=== PATIENT | female | born 1990 | race Caucasian/White ===

== ENCOUNTER 2016-07-19 14:27 | Emergency (ER) | payer OTHER, BC ==
[~2016-07-19] VITALS: Ht 157.5 cm; Wt 70.4 kg
[2016-07-19 14:36] VITALS: TEMP 36.7; Ht 157.5 cm; Wt 70.4 kg
[2016-07-19] MEDS ORDERED: PRENTAB26 PO (15:06)
[2016-07-19] MEDS ORDERED: SODIUM CHLORIDE 0.9% 1000ML 1,000 ML IV STA (15:32)
[2016-07-19 16:12] LABS: HEMATOCRIT 35.7 % (37-47); MEAN CELL VOLUME 95.5 fL (80-100); MEAN CORPUSCULAR HEMOGLOBIN 31.3 pg (25-34); MEAN CORPUSCULAR HGB CONC 32.8 g/dl (32-36); MEAN PLATELET VOLUME 11.4 fL (7.4-10.4); PLATELET COUNT 188 K/uL (130-400); RED BLOOD COUNT 3.74 M/uL (4.2-5.4); WHITE BLOOD COUNT 11.63 K/uL (4.8-10.8)
[2016-07-19 16:30] LABS: URINE APPEARANCE CLEAR (CLEAR); URINE BILIRUBIN NEG (NEG); URINE COLOR YELLOW; URINE NITRITE NEG (NEG); URINE PH 5.5 (4.5-7.5); URINE SPECIFIC GRAVITY 1.022 (1.000-1.030); UROBILINOGEN NEG (NEG)
[2016-07-19 16:34] LABS: ALT/SGPT 27 U/L (12-78); BLOOD UREA NITROGEN 9 mg/dl (7-18); BUN/CREATININE RATIO 16.5 (10-20); CALCIUM 9.3 mg/dl (8.5-10.1); CARBON DIOXIDE 27 mmol/L (21-32); CHLORIDE 107 mmol/L (98-107); CREATININE 0.56 mg/dl (0.60-1.20); GLUCOSE 69 mg/dl (70-99); SODIUM 140 mmol/L (136-145)
[2016-07-19 16:37] LABS: ALKALINE PHOSPHATASE 75 U/L (45-117); AST/SGOT 16 U/L (15-37)
[2016-07-19 16:43] LABS: MANUAL MICROSCOPIC REQUIRED? NO; REVIEW REQ? NO
[2016-07-19 16:43] LABS: BASO % 0.1 %; BASO ABS # 0.01 K/uL (0-0.2); COMPLETE YES; EOS % 0.3 %; IG% 0.3 %; LYMPH % 17.3 %; LYMPH ABS # 2.01 K/uL (1.2-3.4); MONO % 6.2 %; NEUT % 75.8 %
--- NOTE | 2016-07-19 16:54 | DIAGNOSTIC IMAGING REPORT ---
Right upper quadrant ultrasound GALLBLADDER-ABD LIMITED CLINICAL HISTORY: ABDOMINAL PAIN/GI pain TECHNIQUE: Ultrasound COMPARISON STUDY: None FINDINGS: Normal gallbladder. Gallbladder wall and biliary ductal system are normal. Common bile duct measures 4 mm. Liver is uniform throughout. Pancreas and right kidney are unremarkable. IMPRESSION: Normal study Electronically signed by: Keny eNgrete M.D. 07/19/2016 4:52 PM Dictated Date/Time: 07/19/2016 4:51 PM
--- NOTE | 2016-07-19 16:55 | DIAGNOSTIC IMAGING REPORT ---
Limited ultrasound LIMITED (US) CLINICAL HISTORY: abdominal pain pain TECHNIQUE: Ultrasound COMPARISON STUDY: None FINDINGS: Single, viable intrauterine . Fetus is cephalic in presentation. Cardiac activity is normal. Placenta is posterior. Estimated gestational age 29 weeks. IMPRESSION: Single, viable intrauterine estimated at 29 weeks gestational age. Electronically signed by: Keny Negrete M.D. 07/19/2016 4:54 PM Dictated Date/Time: 07/19/2016 4:53 PM
[2016-07-19 17:04] VITALS: BP 129/70; O2SAT 100
[2016-07-19 17:16] VITALS: PULSE 72
--- NOTE | 2016-07-19 23:05 | EMERGENCY ROOM VISIT NOTE ---
ED Visit Note First contact with patient: 14:58 Chief Complaint: Abdominal pain. History of Present Illness: Ms. Carlos is a 25 year-old white female who ambulates into the ED accompanied by her complaining of bilateral upper quadrant abdominal pain. Historically patient reports she has no significant gastrointestinal disorders or abdominal surgeries. She is currently 1 para 0 with an EDC of October 05. She has had no complications with her thus far. Patient reports shortly after waking, approximately 6 hours ago, she developed severe abdominal pain in the bilateral upper abdominal quadrants; she reports this feels like her diaphragm is causing the pain. Since that time the pain has been constant but has waxed and waned in intensity. She did contact her OB/ ELECTROSTATIC PAINT OPERATOR service and spoke to Dr. Lowe and he recommended that she come to the emergency department for evaluation. Currently she describes her pain as a cramping sensation. She currently rates her discomfort 2/10 and reports that has decreased from 6/10. Her pain slightly worsens when she takes a deep breath. She has not identified any alleviating factors related to the pain. She has not taken any medications for pain prior to arrival at the hospital. She denies any associated symptoms including fevers, chills, sweats, skin eruptions, skin color changes, headache, dizziness, lightheadedness, upper respiratory tract symptoms, cough, wheezing, shortness of breath, chest pain, nausea, vomiting, diarrhea, constipation, urinary symptoms, hematuria, vaginal bleeding, vaginal discharge, back/flank pain. Review of Systems: As noted above in history of present illness. All body systems were reviewed and found to be negative as noted above. Past Medical History: Patient denies. Current Medications: wall movements. Allergies to Medications: Morphine, penicillin, sulfa. Social History: Patient is currently employed; she feels safe in her home environment; patient denies tobacco and alcohol use. Physical Examination: Vital Signs: Date Time Temp Pulse Resp B/P Pulse Ox O2 Delivery O2 Flow Rate FiO2 07/19/16 17:16 72 07/19/16 17:04 74 17 129/70 100 Room Air 07/19/16 14:36 36.7 86 20 117/74 98 Room Air GENERAL: 25-year-old female in mild distress due to pain, nontoxic-appearing, afebrile and hemodynamically stable. NEUROLOGICAL: Awake, alert and oriented to person, place and time. Answering questions appropriately and following commands. Normal gait. Good hand eye coordination. SKIN: Warm, dry and pink. No soft tissue eruptions or trauma noted. HEENT: Atraumatic and normocephalic. PERRL. Sclera white and conjunctiva pink. Oral cavity moist and pink. Pharynx is nonerythematous or edematous. Speech normal. No lymphadenopathy. Trachea midline. No jugular venous distention. BACK: No tenderness over the bony spine. No CVA tenderness. THORAX: Lungs sounds are clear to auscultation and equal bilaterally with symmetrical chest wall. No wheezing, rales or rhonchi. No crepitus, tenderness , subcutaneous air or deformities noted. HEART: Regular rate and rhythm. No gallops, rubs or murmurs are appreciated. ABDOMEN: , soft and nontender. Positive bowel sounds in all quadrants. No guarding, rigidity or organomegaly. EXTREMITIES: Moves all extremities well on command and with purpose. All distal neurovascular statuses are intact and equal bilaterally. ED Course: Patient is assessed as noted above. Laboratory Testing: Test 07/19/16 15:00 07/19/16 15:40 Range/Units Urine Color YELLOW Urine Appearance CLEAR CLEAR Urine pH 5.5 4.5-7.5 Urine Specific [place]yler 1.022 1.000-1.030 Urine Protein NEG NEG Urine Glucose (UA) NEG NEG Urine Ketones NEG NEG Urine Occult Blood NEG NEG Urine Nitrite NEG NEG Urine Bilirubin NEG NEG Urine Urobilinogen NEG NEG Urine Leukocyte Esterase NEG NEG White Blood Count 11.63 4.8-10.8 K/uL Red Blood Count 3.74 4.2-5.4 M/uL Hemoglobin 11.7 12.0-16.0 g/dL Hematocrit 35.7 37-47 % Mean Corpuscular Volume 95.5 80-100 fL Mean Corpuscular Hemoglobin 31.3 25-34 pg Mean Corpuscular Hemoglobin Concent 32.8 32-36 g/dl Platelet Count 188 130-400 K/uL Mean Platelet Volume 11.4 7.4-10.4 fL Neutrophils (%) (Auto) 75.8 % Lymphocytes (%) (Auto) 17.3 % Monocytes (%) (Auto) 6.2 % Eosinophils (%) (Auto) 0.3 % Basophils (%) (Auto) 0.1 % Neutrophils # (Auto) 8.82 1.4-6.5 K/uL Lymphocytes # (Auto) 2.01 1.2-3.4 K/uL Monocytes # (Auto) 0.72 0.11-0.59 K/uL Eosinophils # (Auto) 0.03 0-0.5 K/uL Basophils # (Auto) 0.01 0-0.2 K/uL RDW Standard Deviation 44.9 36.4-46.3 fL RDW Coefficient of Variation 13.0 11.5-14.5 % Immature Granulocyte % (Auto) 0.3 % Immature Granulocyte # (Auto) 0.04 0.00-0.02 K/uL Sodium Level 140 136-145 mmol/L Potassium Level 4.0 3.5-5.1 mmol/L Chloride Level 107 98-107 mmol/L Carbon Dioxide Level 27 21-32 mmol/L Anion Gap 6.0 3-11 mmol/L Blood Urea Nitrogen 9 7-18 mg/dl Creatinine 0.56 0.60-1.20 mg/dl Est Creatinine Clear Calc Drug Dose 141.2 ml/min Estimated GFR () > 150.0 Estimated GFR (Non- 129.6 BUN/Creatinine Ratio 16.5 10-20 Random Glucose 69 70-99 mg/dl Calcium Level 9.3 8.5-10.1 mg/dl Total Bilirubin 0.6 0.2-1 mg/dl Direct Bilirubin < 0.1 0-0.2 mg/dl Aspartate Amino Transf (AST/SGOT) 16 15-37 U/L Alanine Aminotransferase (ALT/SGPT) 27 12-78 U/L Alkaline Phosphatase 75 45-117 U/L Total Protein 6.7 6.4-8.2 gm/dl Albumin 3.2 3.4-5.0 gm/dl Lipase 134 73-393 U/L Gallbladder Ultrasound: Was reviewed by myself and read by the radiologist showing a normal-appearing gallbladder, liver, pancreas and right kidney. Common bile duct measuring 4 mm. Ultrasound: Was reviewed by myself and read by the radiologist and shows a single viable intrauterine at an estimated 28 weeks gestation with normal cardiac activity and a posterior placenta. Patient was hydrated with normal saline; she was offered but refused pain medications. Patient was reassessed multiple times during her stay in the emergency department. Patient's case was reviewed with Dr. Phoenix; we agreed on diagnostic approach, treatment, disposition and plan. Patient's case was reviewed with Dr. Lowe; he requested that I just encouraged the patient comes or neck appointment which is scheduled for tomorrow and to use acetaminophen as needed for pain. Patient was educated about today's findings and instructed on her treatment plan ; she verbalized understanding and agreement with this plan. Clinical Impression: Bilateral upper abdominal pain. Decision-Making: Initially and my differential diagnosis I considered pancreatitis, hepatitis, musculoskeletal disorder, cholecystitis, uterine contractions and other causes. Disposition: Patient discharged home in stable condition accompanied by her ; prior to departure she was reassessed and subjectively reported she was feeling the same and rated her discomfort 3/10. Plan: Patient was encouraged use 650 mg of acetaminophen every 6 hours as needed for pain. Patient was encouraged to keep her upcoming appointment tomorrow with her OB/ ELECTROSTATIC PAINT OPERATOR for follow-up care and treatment. Patient was encouraged return the ED for worsening/uncontrolled pain, fevers, vomiting, vaginal bleeding or any new/concerning symptoms.
== END 2016-07-19 17:29 | disposition home or self-care (01) ==
LOC: C.EDB 14:29 → C.EDA 17:29
DX: O26.893 Other specified pregnancy related conditions, third trimester (principal); R10.12 Left upper quadrant pain; R10.11 Right upper quadrant pain; Z3A.28 28 weeks gestation of pregnancy

== ENCOUNTER 2016-10-09 01:49 | Inpatient (IN) | payer OTHER, BC ==
[~2016-10-09] VITALS: Ht 160 cm; Wt 70.3 kg
[~2016-10-09 01:49] MED LIST: PRENTAB26 PO
[2016-10-09] MEDS ORDERED: LACTATED RINGER'S 1000ML 1,000 ML IV PRN (02:02)
[2016-10-09 02:18] VITALS: Ht 160 cm; Wt 70.3 kg
[2016-10-09] MEDS ORDERED: FENTANYL 2MCG/ML ROPIV 1.25MG/ML 100ML BAG EPI ONE (02:34)
[2016-10-09] MEDS ORDERED: BUPIVACAINE 0.25% 30 ML VIAL ONE (02:34)
[2016-10-09] MEDS ORDERED: EpHEDrine SULFATE INJ 50 MG/ML AMP ONE (02:34)
[2016-10-09] MEDS ORDERED: FENTANYL CITRATE INJ 50 MCG/1 ML 2 ML VIAL ONE (02:34)
[2016-10-09 02:37] LABS: HEMATOCRIT 37.6 % (37-47); MEAN CELL VOLUME 93.5 fL (80-100); MEAN CORPUSCULAR HEMOGLOBIN 32.1 pg (25-34); MEAN CORPUSCULAR HGB CONC 34.3 g/dl (32-36); MEAN PLATELET VOLUME 11.9 fL (7.4-10.4); PLATELET COUNT 153 K/uL (130-400); RED BLOOD COUNT 4.02 M/uL (4.2-5.4); WHITE BLOOD COUNT 17.61 K/uL (4.8-10.8)
[2016-10-09] MEDS: LACTATED RINGER'S 1000ML 1,000 ML IV SCH ×2 (03:03→08:17)
[2016-10-09] MEDS ORDERED: NALOXONE HCL INJ 1 MG in SODIUM CHLORIDE 0.9% 1000ML 1,000 ML IV PRN (04:19)
[2016-10-09] MEDS ORDERED: LACTATED RINGER'S 1000ML 500 ML IV PRN (04:19)
[2016-10-09] MEDS ORDERED: NALOXONE HCL INJ 0.4 MG/1 ML VIAL/CARP IV PRN (04:30)
[2016-10-09] MEDS ORDERED: PROMETHAZINE HCL INJ 6.25 MG in SODIUM CHLORIDE 0.9% 50ML 50 ML IV PRN (04:30)
[2016-10-09] MEDS ORDERED: NALBUPHINE HCL INJ 10 MG/ML AMP IV PRN (04:30)
[2016-10-09] MEDS ORDERED: ONDANSETRON INJ 2 MG/ML 2 ML VIAL IV PRN (04:30)
[2016-10-09] MEDS ORDERED: EpHEDrine SULFATE INJ 50 MG/ML AMP IV PRN (04:30)
[2016-10-09] MEDS ORDERED: FENTANYL 2MCG/ML ROPIV 1.25MG/ML 100ML BAG EPI PRN (04:30)
[2016-10-09] MEDS ORDERED: DiphenhydrAMINE HCL 50 MG/ML VIAL IV PRN (04:30)
[2016-10-09] MEDS ORDERED: OXYTOCIN 30 UNITS/500ML NSS IV ONE (07:03)
--- NOTE | 2016-10-09 07:44 | HISTORY & PHYSICAL EXAMINATION ---
DATE OF ADMISSION: 10/09/2016 HISTORY OF PRESENT ILLNESS: The patient is a 25-year-old , due date 10/05/2016, being at 40 weeks and 4 days, presented to labor and delivery with contractions. On arrival, she had no shortness of breath, no chills, no fever. She had intensive contractions 2-3 minutes. She was examined and found to be 5 cm, 80% and -1 station. heart rate is category 1. There is no bloody show or rupture of membranes. COURSE: Has been unremarkable. LABORATORY DATA: Blood type O positive, antibody negative, rubella immune, GBS negative. PAST MEDICAL HISTORY: None. PAST SURGICAL HISTORY: The patient had arthroscopic ACL repair in 2006. ALLERGIES: THE PATIENT IS ALLERGIC TO MORPHINE, PENICILLIN AND SULFA ANTIBIOTICS. SOCIAL HISTORY: The patient denies smoking, drug or alcohol use. PHYSICAL EXAMINATION: GENERAL: Well-developed, well-nourished white female in labor discomfort. HEART: S1, S2, regular rhythm and rate. LUNGS: Clear to auscultation bilaterally. ABDOMEN: Gravid. PELVIC EXAMINATION: 5 cm, 80% and -1 station. EXTREMITIES: No cyanosis, clubbing or edema. ASSESSMENT AND PLAN: A 28-year-old 1, para 0 at 40 weeks and 4 days in labor. PLAN: Admit. Plan is to anticipate vaginal delivery.
[2016-10-09] MEDS ORDERED: ACETAMINOPHEN 325 MG TAB PO PRN (10:15)
[2016-10-09] MEDS ORDERED: HYDROCORTISONE ACETATE 25 MG SUPP PR PRN (10:15)
[2016-10-09] MEDS ORDERED: DIPHTHERIA/TETANUS/PERTUSSIS 0.5 ML SYR/VIAL IM. ONE (10:15)
[2016-10-09] MEDS ORDERED: BENZOCAINE 20% AER SPR 82.5 GM CAN EXT PRN (10:15)
[2016-10-09] MEDS ORDERED: SUPERCREAM 0.870 % 15GM JAR EXT PRN (10:15)
[2016-10-09] MEDS ORDERED: LANOLIN OINT EXT PRN ×2 (10:15)
[2016-10-09] MEDS ORDERED: OXYTOCIN 30 UNITS/500ML NSS IV PRN (10:15)
--- NOTE | 2016-10-09 11:18 | Anesthesia Procedure Note ---
Anesthesia Epidural Removal Nt Date & Time Oct 09, 2016 at 11:17 Vital Signs Pain Intensity: 0.0 Notes Mental Status: alert / awake / arousable, participated in evaluation Nausea / Vomiting: adequately controlled Pain: adequately controlled Airway Patency, RR, SpO2: stable & adequate BP & HR: stable & adequate Hydration State: stable & adequate Neuraxial Anesthesia: was administered Anesthetic Complications: no major complications apparent, pt satisfied with anesthetic care Epidural: removed without complications, with tip intact
[2016-10-09 13:05] VITALS: BP 150/83; PULSE 90; TEMP 36.9; O2SAT 98
--- NOTE | 2016-10-09 13:05 | DELIVERY SUMMARY ---
DATE OF OPERATION: 10/09/2016 TIME OF DELIVERY: 9:37 a.m. DELIVERY OF PLACENTA: 9:39 a.m. DELIVERY NOTE: The patient is a 25-year-old 1, para 0 at 40 weeks and 4 days gestation, who was admitted to labor and delivery on the morning of 10/09/2016 in active labor. She received an epidural for anesthesia. She reached complete dilation at 8:20 a.m. Artificial rupture of membranes was performed at 8:33 a.m. with clear amniotic fluid noted. She pushed to delivery at 9:37 a.m. She delivered a viable male infant in the right occiput anterior position to an intact perineum. The baby was delivered and placed on the patient's abdomen. Cord was clamped x2 and cut. Apgars were 9 at 1 minute, 9 at 5 minutes. Please see nursing notes for further baby assessment. Cord blood was then obtained and intact placenta with 3-vessel cord was delivered at 9:39 a.m. Oxytocin infusion was then began. The lower uterine segment and vagina was cleared of any blood clots and debris. Exploration of the perineum noted a right labial laceration which was repaired with 4-0 Vicryl suture in continuous running fashion. Excellent hemostasis was noted. No other lacerations were seen. Estimated blood loss is 300 mL. All sponge, instrument and needle counts were found to be correct x2. The patient tolerated the delivery well and went into recovery with stable vital signs. I attest to the content of the Intraoperative Record and any orders documented therein. Any exception s are noted below.
[2016-10-09 15:45] VITALS: BP 130/78; PULSE 77; TEMP 36.7
[2016-10-09] MEDS: IBUPROFEN 600 MG TAB PO PRN (16:39)
[2016-10-09 19:20] VITALS: BP 114/72; PULSE 83; TEMP 36.7; O2SAT 97
[2016-10-09] MEDS: DOCUSATE SODIUM 100 MG CAP PO SCH (19:30)
[2016-10-09 23:20] VITALS: BP 102/53; PULSE 78; TEMP 36.9
[2016-10-10 03:45] VITALS: BP 122/77; PULSE 69; TEMP 36.8
[2016-10-10 06:54] LABS: HEMATOCRIT 30.6 % (37-47)
[2016-10-10 07:25] VITALS: BP 103/67; PULSE 72; TEMP 36.8; O2SAT 97
[2016-10-10] MEDS: IBUPROFEN 600 MG TAB PO PRN ×4 (08:25→23:29)
[2016-10-10] MEDS: DOCUSATE SODIUM 100 MG CAP PO SCH ×2 (08:26→19:40)
[2016-10-10] MEDS: FERROUS SULFATE 325 MG TAB PO SCH (08:26)
[2016-10-10] MEDS: PRENATAL VITAMIN TAB PO SCH (08:26)
--- NOTE | 2016-10-10 08:52 | OB/GYN Progress Note ---
[employer] Progress Note Date of Service Oct 10, 2016. Subjective conversation w/ patient, physical exam Ambulation: ambulating normally Voiding: no voiding problems Passing Gas: Yes Diet Tolerance: Regular Diet Lochia: Small Feeding Type: Breast Feeding Objective Vital Signs Date Time Temp Pulse Resp B/P (MAP) Pulse Ox O2 Delivery O2 Flow Rate FiO2 10/10/16 07:25 36.8 72 16 103/67 (79) 97 Room Air 10/10/16 03:45 36.8 69 16 122/77 (92) Room Air 10/09/16 23:23 Room Air 10/09/16 23:20 36.9 78 16 102/53 (69) Room Air 10/09/16 19:20 36.7 83 18 114/72 (86) 97 Room Air 10/09/16 15:45 36.7 77 20 130/78 (95) Room Air 10/09/16 15:45 Room Air 10/09/16 13:05 36.9 90 16 150/83 (105) 98 Room Air Physical Exam General Appearance: WELL-APPEARING, NO APPARENT DISTRESS Abdomen: non tender, soft Fundus: Firm Extremities: non-tender, normal inspection, no pedal edema Laboratory Results Last 24 Hours Test 10/10/16 06:23 Hemoglobin 10.4 g/dL Hematocrit 30.6 % Assessment and Plan Post- Day Number: 1 Continue Routine Care: tent d/c in AM
[2016-10-10 15:30] VITALS: BP 114/74; PULSE 78; TEMP 36.9; O2SAT 98
[2016-10-10] MEDS ORDERED: BISACODYL 5 MG TABEC PO SCH (20:00)
[2016-10-10 23:30] VITALS: BP 119/75; PULSE 63; TEMP 36.7; O2SAT 98
[2016-10-11] MEDS ORDERED: BISACODYL 10 MG SUPP PR PRN (07:00)
[2016-10-11 08:05] VITALS: BP 130/81; PULSE 63; TEMP 36.4
[2016-10-11] MEDS: DOCUSATE SODIUM 100 MG CAP PO SCH (08:28)
[2016-10-11] MEDS: FERROUS SULFATE 325 MG TAB PO SCH (08:28)
[2016-10-11] MEDS: PRENATAL VITAMIN TAB PO SCH (08:28)
[2016-10-11] MEDS: IBUPROFEN 600 MG TAB PO PRN (08:28)
[2016-10-11 08:32] LABS: HEMATOCRIT 35.4 % (37-47); MEAN CORPUSCULAR HEMOGLOBIN 31.5 pg (25-34); MEAN CORPUSCULAR HGB CONC 32.5 g/dl (32-36); MEAN PLATELET VOLUME 11.7 fL (7.4-10.4); PLATELET COUNT 145 K/uL (130-400); RED BLOOD COUNT 3.65 M/uL (4.2-5.4); WHITE BLOOD COUNT 13.81 K/uL (4.8-10.8)
--- NOTE | 2016-10-11 09:59 | OB/GYN Progress Note ---
CORPORATE TRAVEL CONSULTANT Progress Note Date of Service Oct 11, 2016. Subjective conversation w/ patient, physical exam Ambulation: ambulating normally Voiding: no voiding problems Passing Gas: Yes Diet Tolerance: Regular Diet Lochia: Moderate Feeding Type: Breast Feeding Pain: 2/10 Notes: Doing well. Tolerating regular diet. Ambulating without difficulty. Lochia decreasing. Would like to go home today. Objective Vital Signs Date Time Temp Pulse Resp B/P (MAP) Pulse Ox O2 Delivery O2 Flow Rate FiO2 10/11/16 08:05 Room Air 10/11/16 08:05 36.4 63 16 130/81 (97) Room Air 10/10/16 23:30 36.7 63 18 119/75 (90) 98 Room Air 10/10/16 23:30 98 Room Air 10/10/16 16:15 Room Air 10/10/16 15:30 36.9 78 16 114/74 (87) 98 Room Air Physical Exam General Appearance: WELL-APPEARING Respiratory/Chest: chest non-tender, lungs clear Cardiovascular: regular rate, rhythm Abdomen: normal bowel sounds, soft Fundus: Firm Extremities: normal range of motion, non-tender, no calf tenderness Laboratory Results Last 24 Hours Test 10/11/16 08:12 White Blood Count 13.81 K/uL Red Blood Count 3.65 M/uL Hemoglobin 11.5 g/dL Hematocrit 35.4 % Mean Corpuscular Volume 97.0 fL Mean Corpuscular Hemoglobin 31.5 pg Mean Corpuscular Hemoglobin Concent 32.5 g/dl RDW Standard Deviation 47.3 fL RDW Coefficient of Variation 13.3 % Platelet Count 145 K/uL Mean Platelet Volume 11.7 fL Assessment and Plan Post- Day Number: 2 Continue Routine Care: -D/C home today -F/U in 6 weeks.
--- NOTE | 2016-10-11 10:00 | Discharge Instructions ---
Discharge Instructions Date of Service Oct 11, 2016. Admission Reason for Admission: Discharge Discharge Diagnosis / Problem: Vaginal Delivery Discharge Goals Goal(s): Routine recovery after delivery Medications Continue Dispensed Medications: supercream, dermaplast, tucks, lansinoh Activity Recommendations Activity Limitations: per Instructions/Follow-up section . Instructions / Follow-Up Instructions / Follow-Up ACTIVITY RECOMMENDATIONS: * Gradual return to full activity over the next 2-3 weeks. * No lifting - nothing heavier than baby over the next 2-3 weeks. * Do not engage in vigorous exercise, sexual activity or sports until cleared by your physician. * Do not drive or operate any motorized equipment until cleared by your physician. * You may shower/bathe daily. BREAST CARE: If you are not breast feeding: * Wear a supportive bra 24 hours a day for one to two weeks. * Avoid stimulating your breasts and nipples as much as possible during the first few weeks after delivery. * When taking a shower, have the warm water hit your back, not breasts. * When your breasts feel full, apply ice packs. Usually three to four times a day helps ease the discomfort. * Take a mild pain medication (Tylenol/Motrin) when you are uncomfortable. If breast feeding: * Use breast milk to lubricate nipples. Lansinoh cream may be used for sore nipples. You do not need to remove cream prior to breast feeding. If using a different brand of cream, check the label for directions regarding removal of cream prior to nursing. * Wear a supportive bra. * If having problems with breasts or breast feeding, call a technology applications consultant or your health care provider. EPISIOTOMY CARE: After delivery, if you have an episiotomy (stitches), the following steps will ease discomfort and aid healing. * For the first 24 hours after delivery, place ice packs next to your episiotomy to help reduce swelling. * After the first 24 hour-period, sitz baths, either portable or in the tub, are suggested. A shower with a shower arm sprayed over the episiotomy may be comforting. * Michell care should be done after each voiding and bowel movement. Squirt warm water from a plastic bottle over the perineum (region of the body between the anus and urinary opening) and pat dry. * Use Dermoplast to ease discomfort. Shake container. [place] directly over the episiotomy. * Place a Tucks on a clean sanitary pad next to your episiotomy. OVER THE COUNTER MEDICATION: * For discomfort or pain, you may use Acetaminophen (Tylenol), Ibuprofen (Advil ), or Naproxen (Aleve) following the package directions. * For constipation you may use Colace following the package directions. SPECIAL CARE INSTRUCTIONS: When you are discharged from the hospital, it is important for you to follow the instructions listed below: * During the first week at home, you should be able to care for yourself and your baby. In addition, the usual light household activities are encouraged. * Limit your activities to the way you feel. Do not try to clean the house or move furniture. Be sensible. * If you actively engage in sports and have done so up until the time of your delivery, you may resume these activities as soon as you feel able. This may take up to one month or even longer. Use good judgment. * Continue to take your vitamins for at least six weeks after the of your baby. * Your diet need not be limited unless you were on a special diet before your delivery. Breast-feeding mothers need around 2500 calories per day and at least 64-80 ounces of fluid per day (8 to 10 glasses). * You should eat foods from the four major food groups. Crash diets or fad diets are to be avoided. Eating lean meats, fresh fruits and vegetables, low-fat dairy products, high fiber foods and a regular exercise program, will help you get back to your pre- weight without putting your health at risk. * Constipation is sometimes a problem after delivery. Take a mild laxative as needed. If breast feeding, Milk of Magnesia is acceptable to use. You may use a suppository or Fleets enema if no episiotomy. * A daily shower or tub bath is suggested. Be sure to thoroughly and gently dry the perineum. * A bloody vaginal discharge will usually continue until around four weeks post . A small amount of bleeding may continue for as long as six weeks. Vaginal discharge changes from the bright red bleeding after delivery to pink then brownish and finally yellowish-pink before becoming white and disappearing. * Bleeding may increase with activity. Your first period may come in 4-8 weeks. If you are breast feeding, your period may be delayed even longer. * [place] (sex) can begin whenever both you and your partner feel comfortable and do not have any form of genital infection. It is recommended that you wait until after your return appointment and discuss with your physician. If you have questions, please talk to your health care practitioner. A condom should be used to prevent infection and . * Foreplay, gentle intercourse and lubrication is very important the first several times to prevent pain. A water-based lubricant such as K-Y jelly or Astroglide may be used. * Tampons may be used six weeks after delivery. * Douching should be avoided for 6 weeks after delivery. * If you have RH negative blood and your baby is RH positive, you will receive RHOGAM by injection prior to discharge. The nurse will give you a card to keep with you that has the date and place that you received RHOGAM after delivery. * During your care, you had a Rubella screen done to check for the presence of rubella antibodies in your blood. If your test was negative, you will receive a Rubella vaccine prior to discharge. This vaccine may cause a fever, soreness at the injection site and flu-like symptoms. If these symptoms persist, notify your health care practitioner. is not advised for three months after a Rubella vaccine. There is a higher chance of having a baby with defects if conceived within three months of getting the vaccine. * If you were discharged 24 hours from delivery or before 48 hours: Visiting nurses will come to your home 48 hours after discharge to assess you and your baby. The visiting nurse will meet with you while you are in the hospital to arrange a time and get directions to your home. * Verbalizes understanding of car seat law as reviewed with patient nursing. * Car Seat hand-out given and reviewed with patient by nursing. * Shaken baby information reviewed with patient by nursing. Call you doctor if: * Heavy bleeding (saturating several pads an hour) or passing clots the size of your fist. * A fever >101 degrees F (38.3 degrees C) on two occasions four hours apart and/or chills. * Unusual pain in the pelvic or vaginal areas. * "Baby Blues" lasting longer than two weeks. If you have any questions or concerns, call your health care practitioner at . FOLLOW-UP VISIT: * Please call the office at to schedule a 6 week examination. It is important you keep this appointment. * It is important for you to make arrangements for either yearly or twice yearly check-ups thereafter. Current Hospital Diet Patient's current hospital diet: Regular OB Diet Discharge Diet Recommended Diet: Regular OB Diet Pending Studies Studies pending at discharge: no Medical Emergencies . Who to Call and When: Medical Emergencies: If at any time you feel your situation is an emergency, please call 911 immediately. . Non-Emergent Contact Non-Emergency issues call your: Primary Care Provider, [facility] Field Coordinator . . "Provider Documentation" section prepared by Vargas Will. . VTE Core Measure Inpt VTE Proph given/why not?: Treatment not indicated
[2016-10-11 10:20] VITALS: BP_DIAS 81; PULSE 63; TEMP 36.4
== END 2016-10-11 10:40 | disposition home or self-care (01) | DRG 775 ==
LOC: C.OPB 01:49 → C.LD 01:49 → C.OPB 02:03 → C.LD 02:03 → C.OBG 13:43
PROVIDERS: ADMIT Obstetrics & Gynecology; ATTEND Obstetrics & Gynecology
PROC: 10907ZC Drainage of Amniotic Fluid, Therapeutic from Products of Conception, Via Natural or Artificial Opening (ICD-10-PCS; principal; 2016-10-09)
PROC: 10E0XZZ Delivery of Products of Conception, External Approach (ICD-10-PCS; principal; 2016-10-09)
PROC: 4A1HXFZ Monitoring of Products of Conception, Cardiac Rhythm, External Approach (ICD-10-PCS; principal; 2016-10-09)
DX: O80 Encounter for full-term uncomplicated delivery (principal); Z88.5 Allergy status to narcotic agent; Z88.0 Allergy status to penicillin; Z88.2 Allergy status to sulfonamides; Z80.8 Family history of malignant neoplasm of other organs or systems; Z80.3 Family history of malignant neoplasm of breast; Z37.0 Single live birth; Z3A.40 40 weeks gestation of pregnancy

== ENCOUNTER → 2016-11-23 | Outpatient (CLI) | payer OTHER, BC ==
[2016-11-23 13:00] LABS: ALT/SGPT 35 U/L (12-78); AST/SGOT 21 U/L (15-37); BLOOD UREA NITROGEN 15 mg/dl (7-18); BUN/CREATININE RATIO 18.3 (10-20); CALCIUM 8.7 mg/dl (8.5-10.1); CARBON DIOXIDE 29 mmol/L (21-32); CHLORIDE 107 mmol/L (98-107); CHOLESTEROL 187 mg/dl (0-200); CREATININE 0.81 mg/dl (0.60-1.20); GLUCOSE 79 mg/dl (70-99); POTASSIUM 4.1 mmol/L (3.5-5.1); SODIUM 140 mmol/L (136-145); TRIGLYCERIDES 47 mg/dl (0-150); VERY LOW DENSITY LIPOPROT CALC 9 mg/dl
[2016-11-23 13:03] LABS: ALB/GLOB RATIO 1.2 (0.9-2); ALKALINE PHOSPHATASE 89 U/L (45-117); CHOLESTEROL/HDL RATIO 2.1; HDL CHOLESTEROL 89 mg/dl; LDL CHOLESTEROL CALCULATED 89 mg/dl
== END | disposition home or self-care (01) ==
LOC: C.LABBFT 10:39
PROVIDERS: ATTEND Internal Medicine
DX: Z00.00 Encounter for general adult medical examination without abnormal findings (principal)

== ENCOUNTER 2018-04-17 21:37 | Inpatient (IN) ==
[2018-04-17] MEDS ORDERED: OXYTOCIN 30 UNITS/500 ML BAG IV PRN ×2 (21:58→23:00)
[2018-04-17] MEDS ORDERED: LACTATED RINGER'S 1,000 ML IV PRN ×2 (21:58→22:42)
[2018-04-17] MEDS ORDERED: BUPIVACAINE 0.25% 30 ML VIAL ONE (22:02)
[2018-04-17] MEDS ORDERED: ePHEDrine sulfate 50 MG/ML AMP ONE (22:03)
[2018-04-17] MEDS ORDERED: fentaNYL citrate 100 MCG/2 ML VIAL ONE (22:03)
[2018-04-17] MEDS ORDERED: fentaNYL 2MCG/ML ROPIV 1.25MG/ML 100 ML BAG EPI ONE (22:03)
--- NOTE | 2018-04-17 22:03 | History & Physical Report ---
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, has been on Valtrex since 36 weeks No symptoms nor lesions Allergies Allergy/AdvReac Type Severity Reaction Status Date / Time morphine Allergy Intermediate Hives Verified 10/10/16 08:24 Penicillins Allergy Intermediate Hives Verified 10/10/16 08:24 Sulfa (Sulfonamide Allergy Intermediate Hives Verified 10/10/16 08:24 Antibiotics) cat dander Allergy Unknown Unknown Verified 10/10/16 08:24 Home Medications Home Medications Medication Instructions Recorded Confirmed Type Multivit/Min/Iron/Fol Ac/Pren 1 tab PO DAILY #0 tab 07/19/16 History ( Vitamin) Patient History OB History FT 18 months ago Review of Systems All systems reviewed & are unremarkable except as noted in HPI & below Physical Exam 2 Constitutional: WD/WN, vitals as above well nourished and + acute distress Genitourinary: Manual OB Exam: + cervical dilation 7 cm, + cervical effacement 80% and + station -2 OB Exam Monitor Tracing: + category I Bulging bag
--- NOTE | 2018-04-17 22:41 | Anesthesiology Consultation ---
Date of Service April 17, 2018 @ 39.5 Uncomplicated Assessment & Plan (1) Encounter for pre-operative examination: Chart Review Chart Review: Patient NOT seen in Pre Admission Testing and Acceptable Risk for Labor Epidural Consults Requested none ASA ASA2 Proposed Anesthesia Anesthesia Type: CSE Risk / Benefits Reviewed With: PT / POA / Parent / Guardian, Accepts Plan and Informed Consent Obtained NPO Date Last Intake of Fluids: 04/17/18 Time Last Intake of Fluids: 19:00 Date Last Intake of Solids: 04/16/18 Time Last Intake of Solids: 19:00 History Height/Weight Height: 5 ft 3 in Weight: 72.575 kg Allergies Allergy/AdvReac Type Severity Reaction Status Date / Time morphine Allergy Intermediate Hives Verified 10/10/16 08:24 Penicillins Allergy Intermediate Hives Verified 10/10/16 08:24 Sulfa (Sulfonamide Allergy Intermediate Hives Verified 10/10/16 08:24 Antibiotics) cat dander Allergy Unknown Unknown Verified 10/10/16 08:24 Medications Home Medications Medication Instructions Recorded Confirmed Last Taken Multivit/Min/Iron/Fol Ac/Pren 1 tab PO DAILY #0 tab 07/19/16 Unknown ( Vitamin) vit-iron fum-folic ac 1 tab PO DAILY 04/17/18 04/17/18 04/15/18 [ Vitamin] valacyclovir 500 mg PO 04/17/18 04/15/18 Active Medications Generic Name Dose Route Start Last Admin Trade Name Freq PRN Reason Stop Dose Admin Lactated Ringer's 1,000 mls @ 999 mls/hr 04/17/18 21:58 04/17/18 22:00 Lr IV 05/17/18 21:57 999 mls/hr .Q1H1M PRN Administration (Pre-Anesthesia) Social History Smoking Status: Never smoker Do You Dip or Chew Tobacco: No Hx Alcohol Use: No Hx Substance Use: No Physical Exam Vital Signs Last Vital Signs Temp 36.7 C 04/17/18 21:57 Pulse 78 04/17/18 22:37 Resp 18 04/17/18 21:57 BP 135/74 04/17/18 22:36 Pulse Ox 99 04/17/18 22:37 Constitutional Gravid abdomen ENMT Mouth: no TMJ abnormality Thyromental Distance: > or= 3.5 Finger Breadths Mallampati Class: II Neck normal visual inspection Respiratory normal respiratory effort Cardiovascular Rate/Rhythm: regular rate and regular rhythm Neurologic moves all extremities Psychiatric Orientation: alert
[2018-04-17] MEDS ORDERED: NALOXONE HCL 1 MG in SODIUM CHLORIDE 0.9% 1000ML 1,000 ML IV PRN (22:42)
[2018-04-17] MEDS ORDERED: DiphenhydrAMINE HCL 50 MG/ML VIAL IV PRN (22:42)
[2018-04-17] MEDS ORDERED: NALOXONE HCL 0.4 MG/1 ML VIAL/CARP IV PRN (22:42)
[2018-04-17] MEDS ORDERED: NALBUPHINE HCL INJ 10 MG/ML AMP IV PRN (22:42)
[2018-04-17] MEDS ORDERED: ePHEDrine sulfate 50 MG/ML AMP IV PRN (22:42)
[2018-04-17] MEDS ORDERED: ONDANSETRON INJ 2 MG/ML 2 ML VIAL IV PRN (22:42)
[2018-04-17] MEDS ORDERED: PROMETHAZINE HCL 6.25 MG in SODIUM CHLORIDE 0.9% 50 ML IV PRN (22:42)
[2018-04-17] MEDS ORDERED: fentaNYL 2MCG/ML ROPIV 1.25MG/ML 100 ML BAG EPI PRN (22:42)
[2018-04-17] MEDS ORDERED: SUPERCREAM 0.870% 15 GM JAR EXT PRN (23:00)
[2018-04-17] MEDS ORDERED: BISACODYL 10 MG SUPP PR PRN (23:00)
[2018-04-17] MEDS ORDERED: HYDROCORTISONE ACETATE 25 MG SUPP PR PRN (23:00)
[2018-04-17] MEDS ORDERED: ACETAMINOPHEN 325 MG TAB PO PRN (23:00)
[2018-04-17] MEDS ORDERED: BENZOCAINE 20% AER SPR 82.5 GM CAN EXT PRN (23:00)
[2018-04-17] MEDS ORDERED: DIPHTHERIA/TETANUS/PERTUSSIS 0.5 ML SYR/VIAL IM ONE (23:00)
--- NOTE | 2018-04-17 23:02 | Anesthesia Procedure Note ---
Date of Service April 17, 2018 Anesthesia Post Epidural Note Vital Signs Vital Signs: Temp Pulse Resp BP Pulse Ox 04/17/18 22:51 81 134/80 04/17/18 22:47 107 H 100 04/17/18 22:45 18 04/17/18 22:43 110 H 179/86 H 04/17/18 22:42 102 H 100 04/17/18 22:40 18 04/17/18 22:39 83 137/74 04/17/18 22:37 78 99 04/17/18 22:36 76 135/74 04/17/18 22:35 18 04/17/18 22:33 73 132/70 04/17/18 22:32 78 98 04/17/18 22:30 18 04/17/18 22:27 75 176/89 H 98 04/17/18 22:22 81 97 04/17/18 22:21 88 172/86 H 04/17/18 22:19 90 159/112 H 04/17/18 22:18 78 89 L 04/17/18 22:17 83 97 04/17/18 22:15 85 181/105 H 04/17/18 21:57 36.7 C 18 Notes Mental Status: alert / awake / arousable Nausea / Vomiting: adequately controlled Pain: adequately controlled Airway Patency, RR, SpO2: stable & adequate BP & HR: stable & adequate Hydration State: stable & adequate Neuraxial Anesthesia: was administered and sensory block is resolving Anesthetic Complications: no major complications apparent Epidural: Removed without complications and With tip intact
[2018-04-17 23:03] LABS: Hemoglobin 13.3 g/dL (12.0-16.0); Mean Corpuscular Hgb Conc 34.1 g/dL (32-36); Mean Platelet Volume 13.1 fL (7.4-10.4); Platelet Count 138 K/uL (130-400); RDW Coefficient of Variation 12.9 % (11.5-14.5); RDW Standard Deviation 44.6 fL (36.4-46.3); Red Blood Count 4.02 M/uL (4.2-5.4); White Blood Count 14.03 K/uL (4.8-10.8)
[2018-04-17] MEDS ORDERED: HydrALAZINE HCL 20 MG/ML VIAL IV STA (23:35)
[2018-04-17] MEDS ORDERED: MEPERIDINE HCL 25 MG/ML CARP IV ONE (23:42)
[2018-04-17] MEDS ORDERED: HydrALAZINE HCL 20 MG/ML VIAL ONE (23:44)
[2018-04-17] MEDS ORDERED: MAGNESIUM SULFATE 40GM / WTR 1,000 ML BAG IV ONE (23:45)
[2018-04-17] MEDS ORDERED: MAGNESIUM SULFATE 4GM / WTR 100 ML BAG IV ONE (23:45)
[2018-04-17] MEDS ORDERED: MEPERIDINE HCL 25 MG/ML CARP ONE (23:45)
[2018-04-17] MEDS ORDERED: MAGNESIUM SULFATE / WTR 40 GM/1,000 ML BAG IV SCH (23:45)
--- NOTE | 2018-04-18 00:07 | Obstetrical Progress Note ---
Date of Service April 18, 2018 Subjective Patient is reevaluated Her BP's were elevated when she presented to L&D, but she was very painful After epidural was placed she had normal readings. She started to have severe epigastric pain after delivery with elevated BP's in severe range She states she had it with ctxs but not sure from labor pain or not. Epigastric pain got worse after delivery of baby +N&V No RUQ pain/ CALLAWAY/ Change in vision/ Numbness or tingling/ CP/SOB PE: Patient was vomiting earlier and in distress Vital Signs Temp Pulse Resp BP Pulse Ox 04/18/18 00:02 70 100 04/17/18 23:59 69 172/97 H 04/17/18 23:57 75 100 04/17/18 23:53 65 192/103 H 04/17/18 23:52 69 99 04/17/18 23:47 77 99 04/17/18 23:43 71 195/112 H 04/17/18 23:42 75 99 04/17/18 23:31 78 100 04/17/18 23:29 77 182/86 H 04/17/18 23:23 77 169/100 H 04/17/18 23:20 76 173/94 H 04/17/18 23:09 73 168/92 H 04/17/18 22:51 81 134/80 04/17/18 22:47 107 H 100 04/17/18 22:45 18 04/17/18 22:43 110 H 179/86 H 04/17/18 22:42 102 H 100 04/17/18 22:40 18 04/17/18 22:39 83 137/74 04/17/18 22:37 78 99 04/17/18 22:36 76 135/74 04/17/18 22:35 18 04/17/18 22:33 73 132/70 04/17/18 22:32 78 98 04/17/18 22:30 18 04/17/18 22:27 75 176/89 H 98 04/17/18 22:22 81 97 04/17/18 22:21 88 172/86 H 04/17/18 22:19 90 159/112 H 04/17/18 22:18 78 89 L 04/17/18 22:17 83 97 04/17/18 22:15 85 181/105 H 04/17/18 21:57 36.7 C 18 CVS: S1S2 RRR Lungs: CTAB Abd: soft, epigastric tenderness ( 7/10 in intensity), no RUQ tenderness Fundus firm, bleeding minimal Ext: NT, no edema, DTR 3+/3+, no clonus Labs pending AP: 27 yo s/p with elevated Bp's, in severe range, sudden onset epigastric pain, presenting as preeclampsia Plan Hydralazine IV for BP, Demerol for pain, Magnesium seizure prophylaxis Continue to monitor closely Physical Exam 2 Vital Signs (Past 24 Hours): Last Vital Signs Temp 36.7 C 04/17/18 21:57 Pulse 69 04/17/18 23:59 Resp 18 04/17/18 22:45 BP 172/97 H 04/17/18 23:59 Pulse Ox 100 04/17/18 23:57
[2018-04-18 00:09] LABS: BUN Creatinine Ratio 11.9 (10-20); Calcium 10.2 mg/dl (8.5-10.1); Creatinine Clr Calc Pharmacy 103.4 ml/min; Est GFR (African American) 120.8; Est GFR (Non-African American) 104.2; Potassium 3.9 mmol/L (3.5-5.1)
[2018-04-18 00:12] LABS: Albumin Globulin Ratio 0.8 (0.9-2); Bilirubin,Total 0.4 mg/dl (0.2-1); Globulin 3.9 gm/dl (2.5-4.0); Total Protein 6.9 gm/dl (6.4-8.2)
[2018-04-18 00:14] LABS: INR 0.9 (0.9-1.1); Partial Thromboplastin Ratio 0.9; Partial Thromboplastin Time 24.3 Seconds (21.0-31.0); Prothrombin Time 9.4 Seconds (9.0-12.0)
[2018-04-18] MEDS ORDERED: OXYCODONE/ACETAMINOPHEN 5mg/325mg TAB PO PRN (00:35)
[2018-04-18] MEDS: LACTATED RINGER'S 1,000 ML IV SCH ×5 (00:37→14:24)
[2018-04-18] MEDS ORDERED: ONDANSETRON INJ 2 MG/ML 2 ML VIAL IV PRN (00:39)
--- NOTE | 2018-04-18 00:39 | Obstetrical Progress Note ---
Date of Service April 18, 2018 Subjective Patient feels better Epigastric pain is 3/10 ( was 7) No more N&V, tolerating clears and crackers PBP's came down but still eelvated Labs are back 04/17/18 04/17/18 04/17/18 Range/Units 23:53 23:41 23:41 WBC (4.8-10.8) K/uL RBC (4.2-5.4) M/uL Hgb (12.0-16.0) g/dL Hct (37-47) % MCV (80-100) fL MCH (25-34) pg MCHC (32-36) g/dL RDW Std Deviation (36.4-46.3) fL RDW Coeff of Carlitos (11.5-14.5) % Plt Count (130-400) K/uL MPV (7.4-10.4) fL PT 9.4 (9.0-12.0) Seconds INR 0.9 (0.9-1.1) APTT 24.3 (21.0-31.0) Seconds PTT Ratio 0.9 Sodium 138 (136-145) mmol/L Potassium 3.9 (3.5-5.1) mmol/L Chloride 106 (98-107) mmol/L Carbon Dioxide 26 (21-32) mmol/L Anion Gap 6.0 (3-11) BUN 9 (7-18) mg/dl Creatinine 0.78 (0.6-1.2) mg/dl Est Cr Clr Drug Dosing 103.4 ml/min Est GFR ( Amer) 120.8 Est GFR (Non-Af Amer) 104.2 BUN/Creatinine Ratio 11.9 (10-20) Glucose 102 H (70-99) mg/dl Calcium 10.2 H (8.5-10.1) mg/dl Total Bilirubin 0.4 (0.2-1) mg/dl AST 56 H (15-37) U/L ALT 55 (12-78) U/L Alkaline Phosphatase 114 (45-117) U/L Lactate Dehydrogenase 265 H (84-246) U/L Total Protein 6.9 (6.4-8.2) gm/dl Albumin 3.0 L (3.4-5.0) gm/dl Globulin 3.9 (2.5-4.0) gm/dl Albumin/Globulin Ratio 0.8 L (0.9-2) Amylase 69 (25-115) U/L Lipase 103 (73-393) U/L 04/17/18 Range/Units 22:18 WBC 14.03 H (4.8-10.8) K/uL RBC 4.02 L (4.2-5.4) M/uL Hgb 13.3 (12.0-16.0) g/dL Hct 39.0 (37-47) % MCV 97.0 (80-100) fL MCH 33.1 (25-34) pg MCHC 34.1 (32-36) g/dL RDW Std Deviation 44.6 (36.4-46.3) fL RDW Coeff of Carlitos 12.9 (11.5-14.5) % Plt Count 138 (130-400) K/uL MPV 13.1 H (7.4-10.4) fL PT (9.0-12.0) Seconds INR (0.9-1.1) APTT (21.0-31.0) Seconds PTT Ratio Sodium (136-145) mmol/L Potassium (3.5-5.1) mmol/L Chloride (98-107) mmol/L Carbon Dioxide (21-32) mmol/L Anion Gap (3-11) BUN (7-18) mg/dl Creatinine (0.6-1.2) mg/dl Est Cr Clr Drug Dosing ml/min Est GFR ( Amer) Est GFR (Non-Af Amer) BUN/Creatinine Ratio (10-20) Glucose (70-99) mg/dl Calcium (8.5-10.1) mg/dl Total Bilirubin (0.2-1) mg/dl AST (15-37) U/L ALT (12-78) U/L Alkaline Phosphatase (45-117) U/L Lactate Dehydrogenase (84-246) U/L Total Protein (6.4-8.2) gm/dl Albumin (3.4-5.0) gm/dl Globulin (2.5-4.0) gm/dl Albumin/Globulin Ratio (0.9-2) Amylase (25-115) U/L Lipase (73-393) U/L AST slightly elevated Plan to repeat labs in am Continue with IV Magnesium Labetalol for BP Percoset 1 tb for pain for now, will hold Acetaminophen if LFT's will increase in am Physical Exam 2 Vital Signs (Past 24 Hours): Last Vital Signs Temp 36.8 C 04/18/18 00:00 Pulse 78 04/18/18 00:32 Resp 18 04/18/18 00:00 BP 167/97 H 04/18/18 00:28 Pulse Ox 99 04/18/18 00:32
[2018-04-18] MEDS ORDERED: HydrALAZINE HCL 20 MG/ML VIAL IV ONE (00:45)
[2018-04-18] MEDS ORDERED: OXYCODONE/ACETAMINOPHEN 5mg/325mg TAB ONE (01:07)
[2018-04-18] MEDS: LABETALOL HCL 100 MG TAB PO SCH ×3 (01:18→21:31)
[2018-04-18] MEDS ORDERED: MEPERIDINE HCL 50 MG/ML CARP IM PRN (01:46)
[2018-04-18] MEDS ORDERED: CALCIUM CARBONATE 500 MG CHEWABLE TAB PO PRN (02:18)
[2018-04-18] MEDS ORDERED: HydrALAZINE HCL 20 MG/ML VIAL IV PRN ×2 (02:25→02:52)
--- NOTE | 2018-04-18 04:36 | Delivery Summary ---
DATE OF OPERATION: 04/17/2018 TIME OF DELIVERY OF BABY: 2346 p.m. TIME OF DELIVERY OF PLACENTA: 2355 p.m. DETAILS OF DELIVERY: The patient was found to be fully dilated and desired to push. She pushed only once and delivered the head without difficulty. There was a nuchal cord around the neck which was reduced easily. Shoulders were delivered with minimal traction. Baby was handed to the mother where mouth and nose were suctioned. Cord was clamped x2 and cut. It was a 3-vessel cord. Cord blood was obtained. The vagina and perineum were checked for lacerations. There was a small first-degree labial laceration on the superior aspect of the patient's labial fusion. It was repaired with 3-0 Vicryl on a SH needle. Excellent hemostasis was achieved. Rest of the vagina and perineum were intact and then placenta was found to be in the vagina, delivered spontaneous as intact and complete. Uterus was explored, found to be empty. Lower segment was cleared of all clots and debris. The fundus was firm. EBL was 100 mL. Mom and baby tolerated the procedure well. Sponge, lap, needle count was correct x2. There was a viable male infant, Apgars 8 and 9. No complications happened and I was present during whole procedure. I attest to the content of the Intraoperative Record and any orders documented therein. Any exceptions are noted below. MTDD
[2018-04-18 04:58] LABS: Hematocrit (blood only) 33.8 % (37-47); Hemoglobin 11.4 g/dL (12.0-16.0); Mean Corpuscular Hgb Conc 33.7 g/dL (32-36); Mean Corpuscular Volume 95.5 fL (80-100); Mean Platelet Volume 12.7 fL (7.4-10.4); Platelet Count 104 K/uL (130-400); RDW Coefficient of Variation 12.9 % (11.5-14.5); RDW Standard Deviation 44.6 fL (36.4-46.3); Red Blood Count 3.54 M/uL (4.2-5.4); White Blood Count 21.46 K/uL (4.8-10.8)
[2018-04-18 04:59] LABS: Basophils # (auto) 0.01 K/uL (0-0.2); Eosinophils # (auto) 0.01 K/uL (0-0.5); Immature Granulocytes # (auto) 0.07 K/uL (0.00-0.02); Immature Granulocytes % (auto) 0.3 %; Lymphocytes # (auto) 1.53 K/uL (1.2-3.4); Lymphocytes % (auto) 7.1 %; Monocytes # (auto) 1.13 K/uL (0.11-0.59); Monocytes % (auto) 5.3 %; Neutrophils # (auto) 18.71 K/uL (1.4-6.5); Neutrophils % (auto) 87.3 %
[2018-04-18 05:00] LABS: Albumin Level 2.6 gm/dl (3.4-5.0); BUN Creatinine Ratio 11.6 (10-20); Calcium 8.5 mg/dl (8.5-10.1); Creatinine Clr Calc Pharmacy 102.1 ml/min; Est GFR (African American) 118.9; Est GFR (Non-African American) 102.6; Magnesium 4.5 mg/dl (1.8-2.4); Potassium 3.9 mmol/L (3.5-5.1)
[2018-04-18 05:04] LABS: Albumin Globulin Ratio 0.7 (0.9-2); Bilirubin,Total 0.9 mg/dl (0.2-1); Globulin 3.5 gm/dl (2.5-4.0); Total Protein 6.1 gm/dl (6.4-8.2)
--- NOTE | 2018-04-18 05:26 | Obstetrical Progress Note ---
Date of Service April 18, 2018 Subjective Patient is reevaluated She was evaluated by Hospitalist who as not recommended anything different. He plans to order CT is pain will come back. She feels much better, denies epigastric pain or RUQ pain No CALLAWAY/Change in vision/ CP/SOB Bleeding is minimal Vital Signs Temp Pulse Resp BP Pulse Ox 04/18/18 05:17 89 97 04/18/18 05:12 90 98 04/18/18 05:10 78 114/65 04/18/18 05:07 86 97 04/18/18 05:02 81 96 04/18/18 04:57 84 96 04/18/18 04:52 83 96 04/18/18 04:47 80 96 04/18/18 04:42 81 96 04/18/18 04:37 80 96 04/18/18 04:32 82 96 04/18/18 04:27 81 97 04/18/18 04:23 83 93 04/18/18 04:22 82 94 04/18/18 04:17 87 97 04/18/18 04:16 36.6 C 18 97 04/18/18 04:15 88 122/73 04/18/18 04:14 85 89 L 04/18/18 04:12 85 97 04/18/18 04:07 89 97 04/18/18 04:02 80 96 04/18/18 03:57 79 96 04/18/18 03:52 82 95 04/18/18 03:47 90 96 04/18/18 03:42 86 96 04/18/18 03:37 91 H 95 04/18/18 03:32 93 H 96 04/18/18 03:27 86 96 04/18/18 03:22 85 96 04/18/18 03:17 94 H 95 04/18/18 03:12 94 H 97 04/18/18 03:07 98 H 98 04/18/18 03:02 101 H 98 04/18/18 02:57 94 H 97 04/18/18 02:52 91 H 98 04/18/18 02:47 90 97 04/18/18 02:43 80 131/77 04/18/18 02:42 90 98 04/18/18 02:37 86 97 04/18/18 02:32 86 98 04/18/18 02:27 84 96 04/18/18 02:23 83 144/78 H 04/18/18 02:22 83 97 04/18/18 02:17 76 99 04/18/18 02:12 80 99 04/18/18 02:08 81 156/88 H 04/18/18 02:07 80 98 04/18/18 02:02 79 100 04/18/18 01:57 73 99 04/18/18 01:53 69 150/86 H 04/18/18 01:52 84 97 04/18/18 01:47 77 98 04/18/18 01:42 74 98 04/18/18 01:38 78 149/87 H 04/18/18 01:37 80 99 04/18/18 01:32 72 96 04/18/18 01:30 77 94 04/18/18 01:27 88 98 04/18/18 01:24 73 174/96 H 04/18/18 01:23 71 170/100 H 04/18/18 01:22 79 98 04/18/18 01:17 87 99 04/18/18 01:12 82 100 04/18/18 01:08 77 161/98 H 04/18/18 01:07 77 100 04/18/18 01:05 18 97 04/18/18 01:02 77 98 04/18/18 00:57 79 99 04/18/18 00:53 70 160/91 H 04/18/18 00:52 72 98 04/18/18 00:47 74 98 04/18/18 00:46 71 152/87 H 04/18/18 00:42 79 94 04/18/18 00:38 73 179/94 H 04/18/18 00:37 79 99 04/18/18 00:32 78 99 04/18/18 00:28 80 167/97 H 04/18/18 00:27 76 100 04/18/18 00:23 66 168/92 H 04/18/18 00:22 76 99 04/18/18 00:17 79 99 04/18/18 00:12 81 100 04/18/18 00:08 83 168/98 H 04/18/18 00:07 77 100 04/18/18 00:02 70 100 04/18/18 00:00 36.8 C 18 100 04/17/18 23:59 69 172/97 H 04/17/18 23:57 75 100 04/17/18 23:53 65 192/103 H 04/17/18 23:52 69 99 04/17/18 23:47 77 99 04/17/18 23:43 71 195/112 H 04/17/18 23:42 75 99 04/17/18 23:31 78 100 04/17/18 23:29 77 182/86 H 04/17/18 23:23 77 169/100 H 04/17/18 23:20 76 173/94 H 04/17/18 23:09 73 168/92 H 04/17/18 22:51 81 134/80 04/17/18 22:47 107 H 100 04/17/18 22:45 18 04/17/18 22:43 110 H 179/86 H 04/17/18 22:42 102 H 100 04/17/18 22:40 18 04/17/18 22:39 83 137/74 04/17/18 22:37 78 99 04/17/18 22:36 76 135/74 04/17/18 22:35 18 04/17/18 22:33 73 132/70 04/17/18 22:32 78 98 04/17/18 22:30 18 04/17/18 22:27 75 176/89 H 98 04/17/18 22:22 81 97 04/17/18 22:21 88 172/86 H 04/17/18 22:19 90 159/112 H 04/17/18 22:18 78 89 L 04/17/18 22:17 83 97 04/17/18 22:15 85 181/105 H 04/17/18 21:57 36.7 C 18 04/18/18 04/18/18 04/18/18 Range/Units 04:06 04:06 04:06 WBC 21.46 H (4.8-10.8) K/uL RBC 3.54 L (4.2-5.4) M/uL Hgb 11.4 L (12.0-16.0) g/dL Hct 33.8 L (37-47) % MCV 95.5 (80-100) fL MCH 32.2 (25-34) pg MCHC 33.7 (32-36) g/dL RDW Std Deviation 44.6 (36.4-46.3) fL RDW Coeff of Carlitos 12.9 (11.5-14.5) % Plt Count 104 L (130-400) K/uL MPV 12.7 H (7.4-10.4) fL Immature Gran % (Auto) 0.3 % Neut % (Auto) 87.3 % Lymph % (Auto) 7.1 % [place] % (Auto) 5.3 % Eos % (Auto) 0.0 % Baso % (Auto) 0.0 % Immature Gran # (Auto) 0.07 H (0.00-0.02) K/uL Neut # (Auto) 18.71 H (1.4-6.5) K/uL Lymph # (Auto) 1.53 (1.2-3.4) K/uL [place] # (Auto) 1.13 H (0.11-0.59) K/uL Eos # (Auto) 0.01 (0-0.5) K/uL Baso # (Auto) 0.01 (0-0.2) K/uL Platelet Estimate Normal (Normal) PT (9.0-12.0) Seconds INR (0.9-1.1) APTT (21.0-31.0) Seconds PTT Ratio Sodium 135 L (136-145) mmol/L Potassium 3.9 (3.5-5.1) mmol/L Chloride 104 (98-107) mmol/L Carbon Dioxide 23 (21-32) mmol/L Anion Gap 8.0 (3-11) BUN 9 (7-18) mg/dl Creatinine 0.79 (0.6-1.2) mg/dl Est Cr Clr Drug Dosing 102.1 ml/min Est GFR ( Amer) 118.9 Est GFR (Non-Af Amer) 102.6 BUN/Creatinine Ratio 11.6 (10-20) Glucose 108 H (70-99) mg/dl Calcium 8.5 D (8.5-10.1) mg/dl Magnesium 4.5 H (1.8-2.4) mg/dl Total Bilirubin 0.9 D (0.2-1) mg/dl AST 161 H (15-37) U/L ALT 136 H (12-78) U/L Alkaline Phosphatase 98 (45-117) U/L Lactate Dehydrogenase Pending (84-246) U/L Total Protein 6.1 L (6.4-8.2) gm/dl Albumin 2.6 L (3.4-5.0) gm/dl Globulin 3.5 (2.5-4.0) gm/dl Albumin/Globulin Ratio 0.7 L (0.9-2) Amylase (25-115) U/L Lipase (73-393) U/L 04/17/18 04/17/18 04/17/18 Range/Units 23:53 23:41 23:41 WBC (4.8-10.8) K/uL RBC (4.2-5.4) M/uL Hgb (12.0-16.0) g/dL Hct (37-47) % MCV (80-100) fL MCH (25-34) pg MCHC (32-36) g/dL RDW Std Deviation (36.4-46.3) fL RDW Coeff of Carlitos (11.5-14.5) % Plt Count (130-400) K/uL MPV (7.4-10.4) fL Immature Gran % (Auto) % Neut % (Auto) % Lymph % (Auto) % [place] % (Auto) % Eos % (Auto) % Baso % (Auto) % Immature Gran # (Auto) (0.00-0.02) K/uL Neut # (Auto) (1.4-6.5) K/uL Lymph # (Auto) (1.2-3.4) K/uL [place] # (Auto) (0.11-0.59) K/uL Eos # (Auto) (0-0.5) K/uL Baso # (Auto) (0-0.2) K/uL Platelet Estimate (Normal) PT 9.4 (9.0-12.0) Seconds INR 0.9 (0.9-1.1) APTT 24.3 (21.0-31.0) Seconds PTT Ratio 0.9 Sodium 138 (136-145) mmol/L Potassium 3.9 (3.5-5.1) mmol/L Chloride 106 (98-107) mmol/L Carbon Dioxide 26 (21-32) mmol/L Anion Gap 6.0 (3-11) BUN 9 (7-18) mg/dl Creatinine 0.78 (0.6-1.2) mg/dl Est Cr Clr Drug Dosing 103.4 ml/min Est GFR ( Amer) 120.8 Est GFR (Non-Af Amer) 104.2 BUN/Creatinine Ratio 11.9 (10-20) Glucose 102 H (70-99) mg/dl Calcium 10.2 H (8.5-10.1) mg/dl Magnesium (1.8-2.4) mg/dl Total Bilirubin 0.4 (0.2-1) mg/dl AST 56 H (15-37) U/L ALT 55 (12-78) U/L Alkaline Phosphatase 114 (45-117) U/L Lactate Dehydrogenase 265 H (84-246) U/L Total Protein 6.9 (6.4-8.2) gm/dl Albumin 3.0 L (3.4-5.0) gm/dl Globulin 3.9 (2.5-4.0) gm/dl Albumin/Globulin Ratio 0.8 L (0.9-2) Amylase 69 (25-115) U/L Lipase 103 (73-393) U/L 04/17/18 Range/Units 22:18 WBC 14.03 H (4.8-10.8) K/uL RBC 4.02 L (4.2-5.4) M/uL Hgb 13.3 (12.0-16.0) g/dL Hct 39.0 (37-47) % MCV 97.0 (80-100) fL MCH 33.1 (25-34) pg MCHC 34.1 (32-36) g/dL RDW Std Deviation 44.6 (36.4-46.3) fL RDW Coeff of Carlitos 12.9 (11.5-14.5) % Plt Count 138 (130-400) K/uL MPV 13.1 H (7.4-10.4) fL Immature Gran % (Auto) % Neut % (Auto) % Lymph % (Auto) % [place] % (Auto) % Eos % (Auto) % Baso % (Auto) % Immature Gran # (Auto) (0.00-0.02) K/uL Neut # (Auto) (1.4-6.5) K/uL Lymph # (Auto) (1.2-3.4) K/uL [place] # (Auto) (0.11-0.59) K/uL Eos # (Auto) (0-0.5) K/uL Baso # (Auto) (0-0.2) K/uL Platelet Estimate (Normal) PT (9.0-12.0) Seconds INR (0.9-1.1) APTT (21.0-31.0) Seconds PTT Ratio Sodium (136-145) mmol/L Potassium (3.5-5.1) mmol/L Chloride (98-107) mmol/L Carbon Dioxide (21-32) mmol/L Anion Gap (3-11) BUN (7-18) mg/dl Creatinine (0.6-1.2) mg/dl Est Cr Clr Drug Dosing ml/min Est GFR ( Amer) Est GFR (Non-Af Amer) BUN/Creatinine Ratio (10-20) Glucose (70-99) mg/dl Calcium (8.5-10.1) mg/dl Magnesium (1.8-2.4) mg/dl Total Bilirubin (0.2-1) mg/dl AST (15-37) U/L ALT (12-78) U/L Alkaline Phosphatase (45-117) U/L Lactate Dehydrogenase (84-246) U/L Total Protein (6.4-8.2) gm/dl Albumin (3.4-5.0) gm/dl Globulin (2.5-4.0) gm/dl Albumin/Globulin Ratio (0.9-2) Amylase (25-115) U/L Lipase (73-393) U/L BP's came down LFT' s increased PE: She is alert orientedx3, NAD, comfortable Abd: soft, NT, ND, no epigastric nor RUQ tenderness, no rebound either Fundus firm below U Lochia minimal Ext: NT, no edema, DTR2+/2+, no clonus AP: 27 yo s/p 6 hours ago, developed HELLP syndrome rigth after delivery On Labetalol, IV magnesium LFT's increased withing 4 hours with platelets dropped, 104 K Clinically stable, BP's under control Plan to monitor closely, Upper abdominal US Repeat labs in 6 hours Stop Tylenol and Percoset All questions were answered Physical Exam 2 Vital Signs (Past 24 Hours): Last Vital Signs Temp 36.6 C 04/18/18 04:16 Pulse 89 04/18/18 05:17 Resp 18 04/18/18 04:16 BP 114/65 04/18/18 05:10 Pulse Ox 97 04/18/18 05:17
--- NOTE | 2018-04-18 06:45 | Ultrasound Report ---
ABDOMINAL ULTRASOUND, RIGHT UPPER QUADRANT HISTORY: Epigastric pain and HELLP Syndrome. COMPARISON: Right upper quadrant ultrasound July 19, 2016. FINDINGS: Liver morphology is normal. No perihepatic fluid is noted. No hepatic hematoma is identifie d by sonography. 8 mm echogenic left hepatic lobe lesion favors a hemangioma. There is no biliary drew olivia dilatation. Moderate gallbladder wall thickening is noted. There are no gallstones. There is trac e sludge within the gallbladder. Sonographic Martin sign could not be assessed for given pain medicat ion administration. The pancreas is within normal limits by sonography. There is no right hydronephro sis. IMPRESSION: 1. Moderate gallbladder wall thickening, a nonspecific finding. Trace sludge within the gallbladder w ith no gallstones identified. 2. 8 mm echogenic left hepatic lobe lesion. Although nonspecific, a hemangioma is favored. Electronically signed by: Zurdo Mccloud M.D. 04/18/2018 6:44 AM
[2018-04-18 07:36] LABS: INR 0.9 (0.9-1.1); Partial Thromboplastin Ratio 0.9; Partial Thromboplastin Time 23.3 Seconds (21.0-31.0); Prothrombin Time 9.3 Seconds (9.0-12.0)
--- NOTE | 2018-04-18 07:42 | Consultation Report ---
DATE OF CONSULTATION: 04/18/2018 CHIEF COMPLAINT: Epigastric abdominal pain. HISTORY OF PRESENT ILLNESS: This is a 27-year-old female with past medical history significant for HSV infection, multigravida had normal vaginal delivery today and . On the way to the hospital , she had severe epigastric pain. She had normal vaginal delivery and she was found to be in hypertension. She received labetalol and hydralazine for blood pressure and received Demerol for the epigastric pain. Still the patient has significant epigastric abdominal pain and there is a question of HELLP syndrome and also an acute abdomen, so we are called for consult. When saw the patient, the patient's pain has almost resolved. She says it is only 1/10 in severity in the epigastric region and she is worried the pain will be more when she moves, but even on movement, the pain was okay, . She was nauseous during delivery, but currently the nauseous resolved. No feeling of hotness or cold. No chest pain or shortness of breath. No cough. Systolic blood pressure is currently in the 140s, resting comfortably, afebrile. Denies any other complaints. ALLERGIES: MORPHINE, PENICILLIN, SULFA ANTIBIOTICS AND CAT DANDER. PAST MEDICAL HISTORY: As mentioned above. PAST SURGICAL HISTORY: Right ACL repair. MEDICATIONS: The patient is on multivitamin, Benadryl, acyclovir 500 mg p.o. daily. FAMILY HISTORY: Significant for brother who had a bone cancer. Aunt has breast cancer. SOCIAL HISTORY: . No smoking history. No alcohol history. No drug use. REVIEW OF SYMPTOMS: As per HPI. Rest of review of systems is negative. PHYSICAL EXAMINATION: GENERAL: The patient is of moderate build, not in acute distress. VITAL SIGNS: Temperature 36.8, pulse 90, respiratory rate 18, blood pressure 131/77, oxygen 97% room air. HEENT: No pallor, no icterus. NECK: No JVD, no neck masses. CARDIOVASCULAR: S1, S2 heard, regular rate and rhythm, no gallop. RESPIRATORY SYSTEM: Normal AP diameter. No accessory muscle use. No wheezing. No crackles. ABDOMEN: Soft, bowel sounds present. Mild epigastric tenderness, no guarding, no rigidity. No distention. CENTRAL NERVOUS SYSTEM: Nonfocal. EXTREMITIES: No edema, no erythema. LABORATORIES: WBC 14, hemoglobin 13.3, hematocrit 39, platelets 138. PTT 9.4, INR 0.9, APTT 24.3. Sodium 138, potassium 3.9, chloride 106, bicarbonate 26, BUN 9, creatinine 0.7, serum glucose 102, calcium 10.2, mag, total bilirubin 0.4, AST 56, ALT 55, alkaline phosphatase is 140, total protein 6.9. Amylase 69, lipase 103. ASSESSMENT AND PLAN: This is a 27-year-old female status post normal vaginal delivery with complaints of epigastric pain and hypertension. 1. Normal delivery, multigravida patient. Management as per STRATEGY ANALYST. Questionable HELLP syndrome as the patient complained of severe epigastric pain and also blood pressure had been high, on labetalol, also received hydralazine. We will place on IV hydralazine p.r.n. Her labs look fine and abdominal pain is improving. possible gastritis.. We will follow the repeat labs in a.m. and closely monitor for any HELLP syndrome. 2. Deep venous thrombosis prophylaxis and disposition as per STRATEGY ANALYST. MTDD
--- NOTE | 2018-04-18 08:44 | Obstetrical Progress Note ---
Date of Service April 18, 2018 Assessment & Plan (1) HELLP syndrome (HELLP), third trimester: Present on Admission?: No Subjective feeling much better no nausea or vomitting tolerating diet mild headache noted but may be due to being tired/hungry no RUQ anymore no abdominal pain no bleeding Physical Exam 2 Vital Signs (Past 24 Hours): Last Vital Signs Temp 36.7 C 04/18/18 07:30 Pulse 92 H 04/18/18 08:37 Resp 18 04/18/18 07:30 BP 94/50 L 04/18/18 08:28 Pulse Ox 97 04/18/18 08:37 Constitutional: WD/WN, vitals as above comfortable Gastrointestinal (Abdomen): normal bowel sounds, soft, nontender, no hepatosplenomegaly fundus firm no edema of legs neg Julia's urine output adequate Skin: no rashes, warm and dry Results & Data Laboratory Results Vital Signs Temp Pulse Resp BP Pulse Ox 04/18/18 08:37 92 H 97 04/18/18 08:32 90 98 04/18/18 08:28 85 94/50 L 04/18/18 08:27 74 96 04/18/18 08:22 76 96 04/18/18 08:17 75 97 04/18/18 08:12 78 95 04/18/18 08:07 77 94 04/18/18 08:02 76 94 04/18/18 07:57 71 95 04/18/18 07:52 79 97 04/18/18 07:47 76 96 04/18/18 07:42 74 95 04/18/18 07:37 70 95 04/18/18 07:32 72 95 04/18/18 07:30 36.7 C 18 04/18/18 07:27 78 94 04/18/18 07:22 73 98 04/18/18 07:19 78 92 04/18/18 07:18 86 130/64 04/18/18 07:17 85 97 04/18/18 07:12 83 97 04/18/18 07:07 87 98 04/18/18 07:02 76 98 04/18/18 06:57 78 99 04/18/18 06:52 80 98 04/18/18 06:47 77 97 04/18/18 06:45 83 94 02/07/19 06:42 89 98 04/18/18 06:37 79 96 04/18/18 06:32 84 97 04/18/18 06:27 84 97 04/18/18 06:22 79 97 04/18/18 06:17 78 96 04/18/18 06:12 80 108/56 L 98 04/18/18 06:07 74 96 04/18/18 06:02 73 97 04/18/18 05:57 90 98 04/18/18 05:55 79 94 04/18/18 05:52 74 97 04/18/18 05:47 81 97 04/18/18 05:42 83 97 04/18/18 05:37 82 97 04/18/18 05:32 82 97 04/18/18 05:27 80 96 04/18/18 05:22 85 97 04/18/18 05:17 89 97 04/18/18 05:12 90 98 04/18/18 05:10 78 114/65 04/18/18 05:07 86 97 04/18/18 05:02 81 96 04/18/18 04:57 84 96 04/18/18 04:52 83 96 04/18/18 04:47 80 96 04/18/18 04:42 81 96 04/18/18 04:37 80 96 04/18/18 04:32 82 96 04/18/18 04:27 81 97 04/18/18 04:23 83 93 04/18/18 04:22 82 94 04/18/18 04:17 87 97 04/18/18 04:16 36.6 C 18 97 04/18/18 04:15 88 122/73 04/18/18 04:14 85 89 L 04/18/18 04:12 85 97 04/18/18 04:07 89 97 04/18/18 04:02 80 96 04/18/18 03:57 79 96 04/18/18 03:52 82 95 04/18/18 03:47 90 96 04/18/18 03:42 86 96 04/18/18 03:37 91 H 95 04/18/18 03:32 93 H 96 04/18/18 03:27 86 96 04/18/18 03:22 85 96 04/18/18 03:17 94 H 95 04/18/18 03:12 94 H 97 04/18/18 03:07 98 H 98 04/18/18 03:02 101 H 98 04/18/18 02:57 94 H 97 04/18/18 02:52 91 H 98 04/18/18 02:47 90 97 04/18/18 02:43 80 131/77 04/18/18 02:42 90 98 04/18/18 02:37 86 97 04/18/18 02:32 86 98 04/18/18 02:27 84 96 04/18/18 02:23 83 144/78 H 04/18/18 02:22 83 97 04/18/18 02:17 76 99 04/18/18 02:12 80 99 04/18/18 02:08 81 156/88 H 04/18/18 02:07 80 98 04/18/18 02:02 79 100 04/18/18 01:57 73 99 04/18/18 01:53 69 150/86 H 04/18/18 01:52 84 97 04/18/18 01:47 77 98 04/18/18 01:42 74 98 04/18/18 01:38 78 149/87 H 04/18/18 01:37 80 99 04/18/18 01:32 72 96 04/18/18 01:30 77 94 04/18/18 01:27 88 98 04/18/18 01:24 73 174/96 H 04/18/18 01:23 71 170/100 H 04/18/18 01:22 79 98 04/18/18 01:17 87 99 04/18/18 01:12 82 100 04/18/18 01:08 77 161/98 H 04/18/18 01:07 77 100 04/18/18 01:05 18 97 04/18/18 01:02 77 98 04/18/18 00:57 79 99 04/18/18 00:53 70 160/91 H 04/18/18 00:52 72 98 04/18/18 00:47 74 98 04/18/18 00:46 71 152/87 H 04/18/18 00:42 79 94 04/18/18 00:38 73 179/94 H 04/18/18 00:37 79 99 04/18/18 00:32 78 99 04/18/18 00:28 80 167/97 H 04/18/18 00:27 76 100 04/18/18 00:23 66 168/92 H 04/18/18 00:22 76 99 04/18/18 00:17 79 99 04/18/18 00:12 81 100 04/18/18 00:08 83 168/98 H 04/18/18 00:07 77 100 04/18/18 00:02 70 100 04/18/18 00:00 36.8 C 18 100 04/17/18 23:59 69 172/97 H 04/17/18 23:57 75 100 04/17/18 23:53 65 192/103 H 04/17/18 23:52 69 99 04/17/18 23:47 77 99 04/17/18 23:43 71 195/112 H 04/17/18 23:42 75 99 04/17/18 23:31 78 100 04/17/18 23:29 77 182/86 H 04/17/18 23:23 77 169/100 H 04/17/18 23:20 76 173/94 H 04/17/18 23:09 73 168/92 H 04/17/18 22:51 81 134/80 04/17/18 22:47 107 H 100 04/17/18 22:45 18 04/17/18 22:43 110 H 179/86 H 04/17/18 22:42 102 H 100 04/17/18 22:40 18 04/17/18 22:39 83 137/74 04/17/18 22:37 78 99 04/17/18 22:36 76 135/74 04/17/18 22:35 18 04/17/18 22:33 73 132/70 04/17/18 22:32 78 98 04/17/18 22:30 18 04/17/18 22:27 75 176/89 H 98 04/17/18 22:22 81 97 04/17/18 22:21 88 172/86 H 04/17/18 22:19 90 159/112 H 04/17/18 22:18 78 89 L 04/17/18 22:17 83 97 04/17/18 22:15 85 181/105 H 04/17/18 21:57 36.7 C 18 Intake and Output 04/17/18 04/18/18 04/18/18 22:59 06:59 14:59 Intake Total 1000 / 1000 802.083 / 802.083 Output Total 1800 / 1800 Balance -800 / -800 802.083 / 802.083 Intake: IV 1000 / 1000 802.083 / 802.083 Lr 1,000 ml @ 125 mls/hr IV . 1000 / 1000 481.25 / 481.25 Q8H OMAR Rx#:[id number] MAGNESIUM SULFATE / WTR 40 gm 320.833 / 320.833 In 1,000 ml @ 50 mls/hr IV . Q20H OMAR Rx#:[id number] Output: Emesis 300 / 300 Urine Amount (Catheter) 1500 / 1500 Conti/Indwelling 1500 / 1500 Other: # Emeses 1 Weight 72.575 kg Diagnostic Findings Laboratory Results - last 24 hr 04/17/18 04/17/18 04/17/18 22:18 23:41 23:41 WBC 14.03 H RBC 4.02 L Hgb 13.3 Hct 39.0 MCV 97.0 MCH 33.1 MCHC 34.1 RDW Std Deviation 44.6 RDW Coeff of [place] 12.9 Plt Count 138 MPV 13.1 H Immature Gran % (Auto) Neut % (Auto) Lymph % (Auto) [place] % (Auto) Eos % (Auto) Baso % (Auto) Immature Gran # (Auto) Neut # (Auto) Lymph # (Auto) [place] # (Auto) Eos # (Auto) Baso # (Auto) Platelet Estimate PT INR APTT PTT Ratio Sodium 138 Potassium 3.9 Chloride 106 Carbon Dioxide 26 Anion Gap 6.0 BUN 9 Creatinine 0.78 Est Cr Clr Drug Dosing 103.4 Est GFR ( Amer) 120.8 Est GFR (Non-Af Amer) 104.2 BUN/Creatinine Ratio 11.9 Glucose 102 H Calcium 10.2 H Magnesium Total Bilirubin 0.4 AST 56 H ALT 55 Alkaline Phosphatase 114 Lactate Dehydrogenase 265 H Total Protein 6.9 Albumin 3.0 L Globulin 3.9 Albumin/Globulin Ratio 0.8 L Amylase 69 Lipase 103 04/17/18 04/18/18 04/18/18 23:53 04:06 04:06 WBC 21.46 H RBC 3.54 L Hgb 11.4 L Hct 33.8 L MCV 95.5 MCH 32.2 MCHC 33.7 RDW Std Deviation 44.6 RDW Coeff of [place] 12.9 Plt Count 104 L MPV 12.7 H Immature Gran % (Auto) 0.3 Neut % (Auto) 87.3 Lymph % (Auto) 7.1 [place] % (Auto) 5.3 Eos % (Auto) 0.0 Baso % (Auto) 0.0 Immature Gran # (Auto) 0.07 H Neut # (Auto) 18.71 H Lymph # (Auto) 1.53 [place] # (Auto) 1.13 H Eos # (Auto) 0.01 Baso # (Auto) 0.01 Platelet Estimate Normal PT 9.4 INR 0.9 APTT 24.3 PTT Ratio 0.9 Sodium Potassium Chloride Carbon Dioxide Anion Gap BUN Creatinine Est Cr Clr Drug Dosing Est GFR ( Amer) Est GFR (Non-Af Amer) BUN/Creatinine Ratio Glucose Calcium Magnesium Total Bilirubin AST ALT Alkaline Phosphatase Lactate Dehydrogenase 478 H Total Protein Albumin Globulin Albumin/Globulin Ratio Amylase Lipase 04/18/18 04/18/18 04:06 06:59 WBC RBC Hgb Hct MCV MCH MCHC RDW Std Deviation RDW Coeff of [place] Plt Count MPV Immature Gran % (Auto) Neut % (Auto) Lymph % (Auto) [place] % (Auto) Eos % (Auto) Baso % (Auto) Immature Gran # (Auto) Neut # (Auto) Lymph # (Auto) [place] # (Auto) Eos # (Auto) Baso # (Auto) Platelet Estimate PT 9.3 INR 0.9 APTT 23.3 PTT Ratio 0.9 Sodium 135 L Potassium 3.9 Chloride 104 Carbon Dioxide 23 Anion Gap 8.0 BUN 9 Creatinine 0.79 Est Cr Clr Drug Dosing 102.1 Est GFR ( Amer) 118.9 Est GFR (Non-Af Amer) 102.6 BUN/Creatinine Ratio 11.6 Glucose 108 H Calcium 8.5 D Magnesium 4.5 H Total Bilirubin 0.9 D AST 161 H ALT 136 H Alkaline Phosphatase 98 Lactate Dehydrogenase Total Protein 6.1 L Albumin 2.6 L Globulin 3.5 Albumin/Globulin Ratio 0.7 L Amylase Lipase
[2018-04-18] MEDS: IBUPROFEN 600 MG TAB PO PRN ×2 (08:56→20:09)
[2018-04-18] MEDS: DOCUSATE SODIUM 100 MG CAP PO SCH ×2 (08:57→20:13)
[2018-04-18] MEDS: PRENATAL VITAMIN 1 TAB PO SCH (08:57)
[2018-04-18] MEDS: VALACYCLOVIR HCL 500 MG TABLET PO SCH (11:23)
[2018-04-18 12:15] LABS: Hemoglobin 11.1 g/dL (12.0-16.0); Mean Corpuscular Hgb Conc 33.6 g/dL (32-36); Mean Corpuscular Volume 97.6 fL (80-100); Mean Platelet Volume 12.4 fL (7.4-10.4); Platelet Count 94 K/uL (130-400); RDW Coefficient of Variation 13.2 % (11.5-14.5); RDW Standard Deviation 45.6 fL (36.4-46.3); Red Blood Count 3.38 M/uL (4.2-5.4); White Blood Count 13.51 K/uL (4.8-10.8)
[2018-04-18 12:20] LABS: Basophils # (auto) 0.02 K/uL (0-0.2); Basophils % (auto) 0.1 %; Eosinophils # (auto) 0.02 K/uL (0-0.5); Eosinophils % (auto) 0.1 %; Immature Granulocytes # (auto) 0.03 K/uL (0.00-0.02); Immature Granulocytes % (auto) 0.2 %; Lymphocytes % (auto) 15.5 %; Monocytes # (auto) 0.83 K/uL (0.11-0.59); Monocytes % (auto) 6.1 %; Neutrophils # (auto) 10.51 K/uL (1.4-6.5)
[2018-04-18 12:53] LABS: Albumin Globulin Ratio 0.9 (0.9-2); Albumin Level 2.7 gm/dl (3.4-5.0); BUN Creatinine Ratio 8.2 (10-20); Bilirubin,Total 0.8 mg/dl (0.2-1); Calcium 7.6 mg/dl (8.5-10.1); Creatinine Clr Calc Pharmacy 89.6 ml/min; Est GFR (African American) 101.6; Est GFR (Non-African American) 87.6; Globulin 3.1 gm/dl (2.5-4.0); Potassium 4.1 mmol/L (3.5-5.1); Therapeutic Magnesium L&D Only 5.8 mg/dl (1.8-2.4); Total Protein 5.8 gm/dl (6.4-8.2)
[2018-04-18] MEDS ORDERED: MAGNESIUM SULFATE / WTR 40 GM/1,000 ML BAG IV SCH (19:15)
[2018-04-18] MEDS ORDERED: BISACODYL 5 MG TABEC PO SCH (20:00)
[2018-04-18 20:16] LABS: Hematocrit (blood only) 30.7 % (37-47); Hemoglobin 10.3 g/dL (12.0-16.0); Mean Corpuscular Hgb Conc 33.6 g/dL (32-36); Mean Corpuscular Volume 96.8 fL (80-100); RDW Coefficient of Variation 13.4 % (11.5-14.5); RDW Standard Deviation 46.1 fL (36.4-46.3); Red Blood Count 3.17 M/uL (4.2-5.4); White Blood Count 11.49 K/uL (4.8-10.8)
[2018-04-18 20:17] LABS: Mean Platelet Volume 11.5 fL (7.4-10.4); Platelet Count 95 K/uL (130-400)
[2018-04-18 20:39] LABS: Albumin Level 2.5 gm/dl (3.4-5.0); Bilirubin Direct 0.1 mg/dl (0-0.2); Bilirubin,Total 0.5 mg/dl (0.2-1); Total Protein 5.8 gm/dl (6.4-8.2); Uric Acid 6.2 mg/dl (2.6-7.2)
[2018-04-18] MEDS ORDERED: ACETAMINOPHEN 1,000 MG/100 ML VIAL IV ONE (22:08)
[2018-04-18] MEDS ORDERED: [UNRECOGNIZED DRUG - REMARK] ONE (23:45)
[2018-04-19 06:31] LABS: Hematocrit (blood only) 29.6 % (37-47); Hemoglobin 9.7 g/dL (12.0-16.0); Mean Corpuscular Hgb Conc 32.8 g/dL (32-36); RDW Coefficient of Variation 13.8 % (11.5-14.5); RDW Standard Deviation 48.5 fL (36.4-46.3); Red Blood Count 3.02 M/uL (4.2-5.4); White Blood Count 8.48 K/uL (4.8-10.8)
[2018-04-19 06:33] LABS: Mean Platelet Volume 11.4 fL (7.4-10.4); Platelet Count 90 K/uL (130-400)
[2018-04-19 06:54] LABS: Basophils # (auto) 0.01 K/uL (0-0.2); Basophils % (auto) 0.1 %; Eosinophils # (auto) 0.06 K/uL (0-0.5); Eosinophils % (auto) 0.7 %; Immature Granulocytes # (auto) 0.01 K/uL (0.00-0.02); Immature Granulocytes % (auto) 0.1 %; Lymphocytes # (auto) 2.31 K/uL (1.2-3.4); Lymphocytes % (auto) 27.2 %; Monocytes # (auto) 0.61 K/uL (0.11-0.59); Monocytes % (auto) 7.2 %; Neutrophils # (auto) 5.48 K/uL (1.4-6.5); Neutrophils % (auto) 64.7 %
[2018-04-19 07:05] LABS: Carbon Dioxide 25 mmol/L (21-32); Chloride 109 mmol/L (98-107); Potassium 4.1 mmol/L (3.5-5.1); Sodium 139 mmol/L (136-145)
[2018-04-19] MEDS: IBUPROFEN 600 MG TAB PO PRN ×4 (07:21→18:20)
[2018-04-19 07:29] LABS: Alanine Aminotransferase 66 U/L (12-78); Albumin Level 2.2 gm/dl (3.4-5.0); Alkaline Phosphatase 76 U/L (45-117); Aspartate Aminotransferase 43 U/L (15-37); Bilirubin Direct < 0.1 mg/dl (0-0.2); Bilirubin,Total 0.4 mg/dl (0.2-1); Total Protein 5.2 gm/dl (6.4-8.2)
[2018-04-19] MEDS: DOCUSATE SODIUM 100 MG CAP PO SCH (08:15)
[2018-04-19] MEDS: VALACYCLOVIR HCL 500 MG TABLET PO SCH (08:15)
[2018-04-19] MEDS: LABETALOL HCL 100 MG TAB PO SCH (08:16)
[2018-04-19] MEDS: PRENATAL VITAMIN 1 TAB PO SCH (08:17)
--- NOTE | 2018-04-19 10:20 | Obstetrical Progress Note ---
Date of Service April 19, 2018 Assessment & Plan (1) HELLP syndrome (HELLP), third trimester: s/p VD, day #2, HELLP syndrome doing well PIH labs improving stable vitals anticipate disch this PM after PM labs Subjective Ambulation: ambulating normally Voiding: no voiding problems Passing Gas:: Yes Diet Tolerance:: regular diet Lochia:: Small Feeding Type:: breast feeding Review of Systems All systems reviewed & are unremarkable except as noted in HPI & below Physical Exam Vital Signs (Past 24 Hours) Last Vital Signs Temp 36.5 C 04/19/18 07:00 Pulse 81 04/19/18 07:00 Resp 18 04/19/18 07:00 BP 129/73 04/19/18 08:18 Pulse Ox 97 04/19/18 07:00 Constitutional WD/WN, vitals as above well developed and well nourished Eyes PERRL, conjunctivae normal, anicteric sclerae Neck trachea midline, no thyromegaly Respiratory normal respiratory effort, lungs clear to auscultation Auscultation: no crackles, no rales and no wheezes Cardiovascular RRR, no murmur, no edema Gastrointestinal (Abdomen) normal bowel sounds, soft, nontender, no hepatosplenomegaly Uterus is below umbilicus Musculoskeletal no cyanosis or clubbing, extremities motor strength 5/5 Skin no rashes, warm and dry Neurologic patellar DTR's 2+ bilat, sensation intact Psychiatric A+Ox3, euthymic affect Genitourinary normal external appearance
[2018-04-19] MEDS ORDERED: ACETAMINOPHEN SOL 650 MG/20.3 ML UDC PO PRN (11:08)
[2018-04-19] MEDS ORDERED: ACETAMINOPHEN 325 MG TAB PO PRN (13:15)
[2018-04-19 17:07] LABS: Hematocrit (blood only) 32.5 % (37-47); Hemoglobin 10.6 g/dL (12.0-16.0); Mean Corpuscular Hgb Conc 32.6 g/dL (32-36); Mean Corpuscular Volume 99.7 fL (80-100); Mean Platelet Volume 11.7 fL (7.4-10.4); Platelet Count 101 K/uL (130-400); RDW Coefficient of Variation 13.7 % (11.5-14.5); Red Blood Count 3.26 M/uL (4.2-5.4); White Blood Count 11.49 K/uL (4.8-10.8)
[2018-04-19 17:25] LABS: Albumin Level 2.7 gm/dl (3.4-5.0); BUN Creatinine Ratio 12.3 (10-20); Calcium 7.4 mg/dl (8.5-10.1); Creatinine Clr Calc Pharmacy 104.8 ml/min; Est GFR (African American) 122.6; Est GFR (Non-African American) 105.8; Potassium 4.4 mmol/L (3.5-5.1)
[2018-04-19 17:28] LABS: Albumin Globulin Ratio 0.8 (0.9-2); Bilirubin,Total 0.4 mg/dl (0.2-1); Globulin 3.3 gm/dl (2.5-4.0)
== END 2018-04-19 18:39 | disposition home or self-care (01) | DRG 807 ==
LOC: OPB 21:37 → 4S1 21:38 → 4S2 04-19 00:30